=== PATIENT | female | born 1960 | race Caucasian/White ===

== ENCOUNTER 2017-10-30 14:10 | Inpatient (IN) | payer OTHER ==
[~2017-10-30] VITALS: Ht 157.5 cm; Wt 68.9 kg
[2017-12-05] MEDS ORDERED: [UNRECOGNIZED DRUG - OTHER] PO (09:17)
[2017-12-13] MEDS ORDERED: LAMICTAL100 MG PO (11:32)
== END 2017-12-14 16:38 | DRG 470 ==
LOC: O/R 12-12 06:15 → SURH 12-12 07:15 → SURG 12-12 16:12
PROVIDERS: Orthopaedic Surgery
PROC: 0SRC0J9 Replacement of Right Knee Joint with Synthetic Substitute, Cemented, Open Approach (ICD-10-PCS; principal; 2017-12-12 10:15)
DX: M17.11 Unilateral primary osteoarthritis, right knee (principal); D62 Acute posthemorrhagic anemia; G40.409 Other generalized epilepsy and epileptic syndromes, not intractable, without status epilepticus